=== PATIENT | female | born 1960 | race Caucasian/White ===

== ENCOUNTER 2022-04-24 18:23 | Outpatient (CLI) | payer OTHER, SELFPAY ==
[2022-04-24 19:48] LABS: Chloride* 100 mmol/L (96-114); Potassium* 4.3 mmol/L (3.6-5.1); Sodium* 141 mmol/L (135-149)
[2022-04-24 19:50] LABS: Creatinine* 0.8 mg/dL (0.5-1.5); Estimated Glomerular Filt Rate 84 ml/min
[2022-04-24 19:51] LABS: Blood Urea Nitrogen* 18 mg/dL (7-30); Calcium* 9.9 mg/dL (8.4-10.6); Carbon Dioxide* 30 mmol/L (20-32); Glucose* 107 mg/dL (60-115)
== END 2022-04-24 18:24 | disposition home or self-care (01) ==
PROVIDERS: PCP Family Medicine; Visit Provider Family Medicine
DX: Z79.899 Other long term (current) drug therapy (principal); E03.9 Hypothyroidism, unspecified; I10 Essential (primary) hypertension; N95.2 Postmenopausal atrophic vaginitis
CPT/HCPCS: 80048; 84443

== ENCOUNTER 2022-06-19 08:13 | Outpatient (CLI) | payer OTHER, SELFPAY ==
--- NOTE | 2022-06-19 08:15 | CRLHL7_ITS ---
For Patients: As a result of the Century Cures Act, medical imaging exams and procedure reports are released immediately into your electronic medical record. You may view this report before your referring provider. If you have questions, please contact your health care provider. BILATERAL SCREENING MAMMOGRAM WITH COMPUTER-AIDED DETECTION AND TOMOSYNTHESIS TECHNIQUE: CC and MLO views were obtained. These mammographic images have been obtained using full-field digital technique. These mammographic images were interpreted with the benefit of computer-aided detection. Breast Tomosynthesis was used in this interpretation. COMPARISON FILM: 02/21/21, 02/03/20, 05/20/18. FINDINGS: There are scattered areas of fibroglandular density IMPRESSION: There is no radiographic evidence for malignancy. ASSESSMENT: BI-RADS Category 1: Negative RECOMMENDATION: Routine screening mammogram in 1 year. A lay language report of this examination will be provided to the patient. Stuart Smalls M.D. Diagnostic Radiologist [email or web address] ZEYAD/Dictated by: Stuart Smalls MD @ 06/19/2022 9:19:00 AM (Electronically Signed)
== END 2022-06-19 08:14 | disposition home or self-care (01) ==
LOC: MAMMO 08:14
PROVIDERS: PCP Family Medicine; Visit Provider Family Medicine
DX: Z12.31 Encounter for screening mammogram for malignant neoplasm of breast (principal)
CPT/HCPCS: 77063; 77067

== ENCOUNTER 2022-08-18 11:07 | Outpatient (CLI) | payer OTHER, SELFPAY | END 2022-08-18 11:08 | disposition home or self-care (01) | LOC: OP CLINIC 11:08 | PROVIDERS: PCP Family Medicine; Visit Provider Internal Medicine | DX: Z12.11 Encounter for screening for malignant neoplasm of colon (principal); K63.5 Polyp of colon; K57.30 Diverticulosis of large intestine without perforation or abscess without bleeding | CPT/HCPCS: 45380; 88305; J2250; J3010 ==

== ENCOUNTER 2023-07-03 17:43 | Outpatient (CLI) | payer OTHER, SELFPAY ==
--- NOTE | 2023-07-03 18:00 | CRLHL7_ITS ---
For Patients: As a result of the Century Cures Act, medical imaging exams and procedure reports are released immediately into your electronic medical record. You may view this report before your referring provider. If you have questions, please contact your health care provider. BILATERAL SCREENING MAMMOGRAM WITH COMPUTER-AIDED DETECTION AND TOMOSYNTHESIS TECHNIQUE: CC and MLO views were obtained. These mammographic images have been obtained using full-field digital technique. These mammographic images were interpreted with the benefit of computer-aided detection. Breast Tomosynthesis was used in this interpretation. COMPARISON FILM: 06/19/22, 02/21/21, 02/03/20. FINDINGS: There are scattered areas of fibroglandular density IMPRESSION: There is no radiographic evidence for malignancy. ASSESSMENT: BI-RADS Category 2: Benign RECOMMENDATION: Routine screening mammogram in 1 year. A lay language report of this examination will be provided to the patient. Stuart Smalls M.D. Diagnostic Radiologist [email or web address] ZEYAD/Dictated by: Stuart Smalls MD @ 07/04/2023 12:46:00 PM (Electronically Signed)
== END 2023-07-03 17:44 | disposition home or self-care (01) ==
LOC: MAMMO 17:44
PROVIDERS: PCP Family Medicine; Visit Provider Family Medicine
DX: Z12.31 Encounter for screening mammogram for malignant neoplasm of breast (principal)
CPT/HCPCS: 77063; 77067

== ENCOUNTER 2023-07-27 08:03 | Outpatient (CLI) | payer OTHER, SELFPAY | END 2023-07-27 08:04 | disposition home or self-care (01) | PROVIDERS: PCP Family Medicine; Visit Provider Family Medicine | DX: E78.2 Mixed hyperlipidemia (principal); I10 Essential (primary) hypertension; E03.9 Hypothyroidism, unspecified; E55.9 Vitamin D deficiency, unspecified; N95.2 Postmenopausal atrophic vaginitis | CPT/HCPCS: 80048; 80061; 84443 ==

== ENCOUNTER 2024-07-08 15:50 | Outpatient (CLI) | payer OTHER, SELFPAY ==
--- NOTE | 2024-07-08 15:40 | CRLHL7_ITS ---
For Patients: As a result of the Century Cures Act, medical imaging exams and procedure reports are released immediately into your electronic medical record. You may view this report before your referring provider. If you have questions, please contact your health care provider. BILATERAL SCREENING MAMMOGRAM WITH COMPUTER-AIDED DETECTION AND TOMOSYNTHESIS TECHNIQUE: CC and MLO views were obtained. These mammographic images have been obtained using full-field digital technique. These mammographic images were interpreted with the benefit of computer-aided detection. Breast Tomosynthesis was used in this interpretation. COMPARISON FILM: 07/03/23, 06/19/22, 02/21/21. FINDINGS: There are scattered areas of fibroglandular density IMPRESSION: There is no radiographic evidence for malignancy. ASSESSMENT: BI-RADS Category 1: Negative RECOMMENDATION: Routine screening mammogram in 1 year. A lay language report of this examination will be provided to the patient. Stuart Smalls M.D. Diagnostic Radiologist [email or web address] ZEYAD/Dictated by: Stuart Smalls MD @ 07/09/2024 8:53:00 AM (Electronically Signed)
== END 2024-07-08 15:51 | disposition home or self-care (01) ==
LOC: MAMMO 15:51
PROVIDERS: PCP Family Medicine; Visit Provider Obstetrics & Gynecology
DX: Z12.31 Encounter for screening mammogram for malignant neoplasm of breast (principal)
CPT/HCPCS: 77063; 77067

== ENCOUNTER 2024-08-22 11:02 | Outpatient (CLI) | payer OTHER, SELFPAY | END 2024-08-22 11:03 | disposition home or self-care (01) | PROVIDERS: PCP Family Medicine; Visit Provider Family Medicine | DX: E78.2 Mixed hyperlipidemia (principal); I10 Essential (primary) hypertension; E03.9 Hypothyroidism, unspecified | CPT/HCPCS: 80048; 80061; 84443 ==

== ENCOUNTER 2025-03-20 11:23 | Outpatient (CLI) | payer OTHER, SELFPAY | END 2025-03-20 11:24 | disposition home or self-care (01) | PROVIDERS: PCP Family Medicine; Visit Provider Family Medicine | DX: E03.9 Hypothyroidism, unspecified (principal); E78.2 Mixed hyperlipidemia; I10 Essential (primary) hypertension; R10.12 Left upper quadrant pain; Z11.1 Encounter for screening for respiratory tuberculosis | CPT/HCPCS: 80048; 80061; 80076; 83690; 84443; 85025; 86480 ==

== ENCOUNTER 2025-03-23 07:45 | Outpatient (CLI) | payer OTHER, SELFPAY ==
--- NOTE | 2025-03-23 08:00 | CRLHL7_ITS ---
For Patients: As a result of the Century Cures Act, medical imaging exams and procedure reports are released immediately into your electronic medical record. You may view this report before your referring provider. If you have questions, please contact your health care provider. Indication: LUQ PAIN. BACK, SIDE AND ABD AREA Technique: CT Chest/Abd/Pelvis 82CC ISOVUE 370 AND WATER PREP intravenous contrast Please note that all CT scans at this facility use dose modulation, iterative reconstruction, and/or weight-based dosing when appropriate to reduce radiation dose to as low as reasonably achievable. Comparison: None Findings: In the chest, incidental tiny calcified nodule left lower lobe. Lungs are clear. No infiltrate, edema, effusion or pneumothorax. Normal thyroid. No mediastinal, hilar or axillary adenopathy. No fracture. In the abdomen, the spleen is not enlarged. Incidental splenule inferior to the spleen measures 12 millimeters. Smaller additional splenule at the medial aspect. Small intra splenic hemangioma measures 9 millimeters. Pancreas is unremarkable. Normal adrenal glands. Gallbladder normal. Liver unremarkable. No hiatal hernia. Left lower ribcage intact. No hernia. No retroperitoneal or mesenteric adenopathy. Complex cystic lesion arises from the right kidney laterally measuring 13 millimeters. In the pelvis, the bladder is normal. Postop changes in the pelvis. No pelvic mass. No pelvic free fluid or abscess. Mild sigmoid diverticulosis. No diverticulitis. No bowel obstruction, free air or free fluid. Appendix normal. No inguinal or pelvic adenopathy. Degenerative changes at the left sacroiliac joint. Impression: No findings to explain the clinical symptoms. Complex cystic lesion arising from the right kidney measures 13 millimeters. MRI kidney is recommended for further evaluation. Mild sigmoid diverticulosis. No diverticulitis. Please note that all CT scans at this facility use dose modulation, iterative reconstruction, and/or weight-based dosing when appropriate to reduce radiation dose to as low as reasonably achievable. Dictated by Stuart Smalls MD @ 03/23/2025 11:20:02 AM (Electronically Signed)
== END 2025-03-23 07:46 | disposition home or self-care (01) ==
PROVIDERS: PCP Family Medicine; Visit Provider Family Medicine
DX: R10.12 Left upper quadrant pain (principal); N28.9 Disorder of kidney and ureter, unspecified; K57.30 Diverticulosis of large intestine without perforation or abscess without bleeding
CPT/HCPCS: 71260; 74177; Q9967

== ENCOUNTER 2025-04-02 14:18 | Outpatient (CLI) | payer OTHER, SELFPAY ==
--- NOTE | 2025-04-02 14:30 | CRLHL7_ITS ---
For Patients: As a result of the Century Cures Act, medical imaging exams and procedure reports are released immediately into your electronic medical record. You may view this report before your referring provider. If you have questions, please contact your health care provider. INDICATION: Renal cyst. COMPARISON: CT scan of the chest, abdomen, and pelvis dated 23 March 2025. Technique : Abdominal MRI with T1 in and out of phase, T2, diffusion weighted, and progressively delayed post-contrast images. Intravenous gadolinium administered. Findings : Minimal fatty infiltration of the liver. No focal abnormalities identified in the visualized portions of the liver, pancreas, and adrenal glands. 1.1 cm cyst containing debris extending anteriorly off the interpolar region of the right kidney. Minimal rim enhancement around the cyst. The kidneys are otherwise unremarkable. No hydronephrosis. A few small cysts in the spleen. The spleen is otherwise unremarkable. Impression : 1. 1.1 cm right renal cyst containing debris with minimal rim enhancement. Bosniak 2F cyst. Recommend follow-up CT or MRI in 1 year to begin documentation of stability. Dictated by David Garcia MD @ 04/04/2025 5:01:39 PM (Electronically Signed)
== END 2025-04-02 14:19 | disposition home or self-care (01) ==
LOC: MRI 14:19
PROVIDERS: PCP Family Medicine; Visit Provider Family Medicine
DX: N28.1 Cyst of kidney, acquired (principal)
CPT/HCPCS: 74183; A9575

== ENCOUNTER 2025-08-04 11:23 | Outpatient (CLI) | payer OTHER, SELFPAY ==
--- NOTE | 2025-08-04 11:30 | CRLHL7_ITS ---
For Patients: As a result of the Century Cures Act, medical imaging exams and procedure reports are released immediately into your electronic medical record. You may view this report before your referring provider. If you have questions, please contact your health care provider. INDICATION: BILATERAL SCREENING MAMMOGRAM, ASYMPTOMATIC 65 Y/O FEMALE COMPARISON: 07/08/2024, 07/03/2023, 06/19/2022 TECHNIQUE: Digital mammogram in CC and MLO projections including computer-aided detection (CAD) and tomosynthesis. BREAST COMPOSITION: There are scattered areas of fibroglandular density. FINDINGS: No suspicious findings. ASSESSMENT: BI-RADS 1 Negative RECOMMENDATION: Annual screening mammogram. A lay language report of this examination will be provided to the patient. Dictated by: Nelly Shukla MD @ 08/05/2025 20:44:34 (Electronically Signed)
== END 2025-08-04 11:24 | disposition home or self-care (01) ==
LOC: MAMMO 11:24
PROVIDERS: PCP Family Medicine; Visit Provider Family Medicine
DX: Z12.31 Encounter for screening mammogram for malignant neoplasm of breast (principal)
CPT/HCPCS: 77063; 77067